=== PATIENT | female | born 1955 | race Caucasian/White ===

== ENCOUNTER 2023-11-16 16:00 | Outpatient (CLI) | payer MEDICARE ==
[2023-11-16 20:23] LABS: BASOPHILS % (AUTO) 0.5 %; EOSINOPHILS # (AUTO) 0.4 10^3/uL (0.0-0.7); EOSINOPHILS % (AUTO) 7.4 %; HCT - HEMATOCRIT 41.7 % (37.0-47.0); HGB - HEMOGLOBIN 12.9 g/dL (12.0-16.0); LYMPHOCYTES % (AUTO) 18.1 %; MEAN CORPUSCULAR HEMOGLOBIN 27.6 pg (27.0-31.0); MEAN CORPUSCULAR HGB CONC 30.9 g/dL (32.0-36.0); MEAN CORPUSCULAR VOLUME 89.3 fL (81.0-99.0); MEAN PLATELET VOLUME 11.8 fL (7.9-10.8); MONOCYTES # (AUTO) 0.4 10^3/uL (0.0-1.0); MONOCYTES % (AUTO) 7.6 %; NEUTROPHILS # (AUTO) 3.7 10^3/uL (1.5-6.6); NEUTROPHILS % (AUTO) 66.2 %; PLT - PLATELET COUNT 221 10^3/uL (130-450); RED BLOOD COUNT 4.67 10^6/uL (4.20-5.40); RED CELL DISTRIBUTION WIDTH 13.8 % (12.0-15.0); WHITE BLOOD COUNT 5.5 x10^3/uL (4.8-10.8)
[2023-11-16 20:37] LABS: ALBUMIN 4.2 g/dL (3.2-5.5); ALBUMIN/GLOBULIN RATIO 1.6 (1.0-2.2); BILIRUBIN,TOTAL 0.4 mg/dL (0.2-1.0); CALCIUM 9.6 mg/dL (8.5-10.3); CREATININE 0.7 mg/dL (0.6-1.3); CRP - C-REACTIVE PROTEIN 0.9 mg/dL (<0.5); POTASSIUM 4.2 mmol/L (3.5-4.5); TOTAL PROTEIN 6.9 g/dL (6.4-8.9)
== END 2023-11-16 16:15 | disposition home or self-care (01) ==
LOC: LAB.N 16:00
PROVIDERS: ATTEND Physician Assistant
DX: L95.9 Vasculitis limited to the skin, unspecified (principal)
CPT/HCPCS: 36415; 80053; 85025; 85651; 86140

== ENCOUNTER 2023-12-21 08:00 | Outpatient (CLI) | payer MEDICARE | END 2023-12-21 23:59 | disposition home or self-care (01) | LOC: LAB.WCP 08:00 | PROVIDERS: ATTEND Physician Assistant | DX: L03.116 Cellulitis of left lower limb (principal) | CPT/HCPCS: 87070; 87205 ==

== ENCOUNTER 2024-01-03 09:46 | Outpatient (CLI) | payer MEDICARE ==
[2024-01-03 12:24] LABS: BASOPHILS % (AUTO) 0.7 %; EOSINOPHILS # (AUTO) 0.7 10^3/uL (0.0-0.7); HCT - HEMATOCRIT 41.9 % (37.0-47.0); HGB - HEMOGLOBIN 13.3 g/dL (12.0-16.0); LYMPHOCYTES # (AUTO) 0.8 10^3/uL (1.5-3.5); LYMPHOCYTES % (AUTO) 14.2 %; MEAN CORPUSCULAR HEMOGLOBIN 28.1 pg (27.0-31.0); MEAN CORPUSCULAR HGB CONC 31.7 g/dL (32.0-36.0); MEAN CORPUSCULAR VOLUME 88.6 fL (81.0-99.0); MEAN PLATELET VOLUME 11.6 fL (7.9-10.8); MONOCYTES # (AUTO) 0.4 10^3/uL (0.0-1.0); MONOCYTES % (AUTO) 7.5 %; NEUTROPHILS # (AUTO) 3.8 10^3/uL (1.5-6.6); NEUTROPHILS % (AUTO) 65.3 %; PLT - PLATELET COUNT 207 10^3/uL (130-450); RED BLOOD COUNT 4.73 10^6/uL (4.20-5.40); RED CELL DISTRIBUTION WIDTH 14.5 % (12.0-15.0); WHITE BLOOD COUNT 5.8 x10^3/uL (4.8-10.8)
[2024-01-03 12:52] LABS: ALBUMIN 4.2 g/dL (3.2-5.5); ALBUMIN/GLOBULIN RATIO 1.5 (1.0-2.2); BILIRUBIN,TOTAL 0.6 mg/dL (0.2-1.0); CALCIUM 9.7 mg/dL (8.5-10.3); CREATININE 0.8 mg/dL (0.6-1.3); CRP - C-REACTIVE PROTEIN 0.6 mg/dL (<0.5); POTASSIUM 4.3 mmol/L (3.5-4.5)
[2024-01-03 12:54] LABS: THYROID STIMULATING HORMONE 2.48 uIU/mL (0.34-5.60)
[2024-01-03 13:06] LABS: ESTIMATED AVERAGE GLUCOSE 114 mg/dL (70-100); HEMOGLOBIN A1c% 5.6 % (4.27-6.07)
== END 2024-01-03 09:47 | disposition home or self-care (01) ==
LOC: LAB.N 09:46
PROVIDERS: ATTEND Physician Assistant
DX: R73.01 Impaired fasting glucose (principal); I10 Essential (primary) hypertension; L95.9 Vasculitis limited to the skin, unspecified
CPT/HCPCS: 36415; 80053; 83036; 84443; 85025; 85651; 86038; 86140

== ENCOUNTER 2024-01-08 08:00 | Outpatient (CLI) | payer MEDICARE | END 2024-01-08 08:01 | disposition home or self-care (01) | LOC: LAB.R 08:00 | PROVIDERS: ATTEND Nurse Practitioner | DX: R21 Rash and other nonspecific skin eruption (principal) | CPT/HCPCS: 87070; 87205 ==